=== PATIENT | female | born 1970 | race Caucasian/White ===

== ENCOUNTER 2019-12-10 15:27 | Emergency (ER) | payer SELFPAY ==
[2019-12-10 15:27] VITALS: RESP 16; O2SAT 100
[2019-12-10 15:28] VITALS: BP 117/75; PULSE 84; RESP 16; TEMP 36.7; O2SAT 97; BMI 25.7
--- NOTE | 2019-12-10 15:38 | ED.VIS.GEN ---
History of Present Illness Chief Complaint: Cough Informant: Patient Onset: Days Context: Gradual Onset Timing: Waxes and wanes Current Severity: Moderate Maximum Severity: Moderate Narrative: Patient presents with flulike symptoms for the past 2 days. She describes having fever at home, short of breath, dry cough. She is had nausea, vomiting, and diarrhea as well. She does complain of generalized body aches. She took Mucinex this morning. She did not get a flu shot. She is from [place] but is currently working in the area does not have a local primary care doctor. - Past Medical History (1) Endometriosis Status: Chronic (2) H/O: hysterectomy Status: Chronic (3) Hx of appendectomy Status: Chronic (4) Hx of cholecystectomy Status: Chronic Past Medical History - Allergies and Home Meds Allergies/Adverse Reactions: Allergies No Known Allergies Allergy (Verified 12/10/19 15:30) Primary Care Physician: NOT,DEFINED [NON-STAFF] - Surgical History: appendectomy, cholecystectomy, hysterectomy Review of Systems General: Reports: Fever Eyes: Denies: Visual changes - bilaterally ENT: Reports: Right ear pain, - - Congestion Cardiovascular: Denies: Chest pain Respiratory: Reports: Dyspnea, Cough. Denies: Sputum Gastrointestinal: Reports: Nausea, Vomiting, Diarrhea. Denies: Abdominal pain Genitourinary: Denies: Dysuria Musculoskeletal: Reports: Myalgias. Denies: Back pain, Extremity Pain Skin: Denies: Rash Neurological: Denies: Headache Allergy: Denies: Uticaria Physical Exam Vital Signs/Narrative: Vital Signs Temp Pulse Resp BP Pulse Ox 12/10/19 15:28 98.1 F 84 16 117/75 97 Inital Vital Signs reviewed: Yes General: Well nourished, Well developed Head: Normocephalic ENT: Moist mucous membranes Neck: Supple Cardiovascular: Regular rate, Regular rhythm Respiratory: No distress, Wheezing Abdomen: Soft, Nontender, Normal bowel sounds Back: Nontender Extremities: Nontender Skin: Normal color, No rash Neurological: Alert, Oriented x3 Psychological: Normal affect Diagnostic/Tx/Re-eval Chest X-Ray - ED: 2 View, Read by ED Physician, Normal, Heart, Lungs, Mediastinum, No Infiltrates - Medical Decision Making 2 view chest x-ray is unremarkable. Influenza swab is negative. Patient was given naproxen here along with a DuoNeb treatment. On repeat evaluation she does report some improvement in her breathing. She continues to have some mild wheezes. She will be given 2 puffs of an albuterol inhaler here and then she will be will take at home with her. She is encouraged to use Tylenol and ibuprofen for symptom control as well as increase fluids. She is given a work note for yesterday and today. ED Disposition - Plan for ED Patient: Disposition: Home or Assisted Living Diagnosis: Viral syndrome Instructions: VIRAL SYNDROME (Adult) Additional Instructions: Albuterol inhaler - 2 puffs every 4 hours as needed for shortness of breath/wheezing
[2019-12-10 15:50] VITALS: PULSE 92; RESP 20
[2019-12-10] MEDS: Ipratropium/Albuterol Sulfate 3 ML AMPUL.NEB INHALATION (15:50)
[2019-12-10] MEDS: Naproxen 500 MG Tablet PO (16:21)
[2019-12-10 16:24] VITALS: O2SAT 100
--- NOTE | 2019-12-10 16:25 | RAD_ITS ---
STUDY: X-RAY CHEST REASON FOR EXAM: Female, 49 years old. COUGH, SOB, HX BRONCHITIS TECHNIQUE: PA and lateral COMPARISON: None. FINDINGS: The lungs are clear and expanded. There is no demonstrated pleural abnormality. Normal size heart. Normal mediastinum and kraig. Normal visualized pulmonary arteries. Normal visualized aortic arch and descending thoracic aorta. Normal visualized thoracic spine. Normal visualized ribs, clavicles, and shoulders. There is no demonstrated abnormality of the visualized soft tissue structures of the upper abdomen. RAD/Chest PA and Lateral IMPRESSION: Normal x-ray examination of the chest. Electronically Signed: Dom Manzano MD at 17:01 EST , Service support ,
== END 2019-12-10 17:09 | disposition home or self-care (01) ==
PROVIDERS: Emergency Provider Emergency Medicine
DX: B34.9 Viral infection, unspecified (principal)
CPT/HCPCS: 71046; 87804; 94640; 99283